=== PATIENT | male | born 1940 | race Caucasian/White ===

== ENCOUNTER 2022-02-11 06:56 | Inpatient (IN) ==
[2022-02-11] MEDS ORDERED: Furosemide 40 MG/4 ML VIAL IVP ONE (07:00)
[2022-02-11 07:33] LABS: Basophils # 0.1 K/mcL (0.0-0.2); Eosinophils # 0.5 K/mcL (0.0-0.6); Eosinophils % 6.7 %; Hemoglobin 10.6 g/dL (12.9-16.9); Immature Granulocytes % 0.4 % (0-4); Lymphocytes # 0.7 K/mcL (0.6-4.6); Lymphocytes % 9.6 %; Mean Corpuscular HGB Conc 33.1 g/dL (31.6-35.5); Mean Corpuscular Hemoglobin 33.2 pg (28.0-33.3); Mean Corpuscular Volume 100.3 fL (83.0-100.0); Mean Platelet Volume 9.6 fL (9.4-12.4); Monocytes # 0.7 K/mcL (0.0-1.3); Monocytes % 9.7 %; Neutrophils # 5.3 K/mcL (1.6-8.9); Platelet Count 117 K/mcL (140-400); Red Blood Count 3.19 M/mcL (4.19-5.50); Red Cell Distribution Width 16.6 % (11.5-14.5); Segmented Neutrophils % 72.6 %; White Blood Count 7.3 K/mcL (4.3-11.1)
[2022-02-11 07:45] LABS: INR 1.5
[2022-02-11 07:52] LABS: Albumin/Globulin Ratio 0.8 (1.1-2.2); Bilirubin,Direct 1.3 mg/dL (0.0-0.2); Bilirubin,Indirect 2.4 mg/dL (0.0-1.0); Bilirubin,Total 3.7 mg/dL (0.3-1.0); Calcium 8.7 mg/dL (8.6-10.3); Potassium 3.9 mEq/L (3.5-5.1); Troponin I 0.03 ng/mL (< 0.04)
[2022-02-11] MEDS ORDERED: Lactulose Oral Soln 20 GM/30 ML UDC PO ONE (08:02)
[2022-02-11] MEDS ORDERED: Naloxone 0.4 MG/ML INJ IVP PRN (08:42)
[2022-02-11] MEDS ORDERED: Ibuprofen 400 MG TABLET PO PRN (08:42)
[2022-02-11] MEDS ORDERED: D5% in Water 1,000 ML IVC PRN (08:42)
[2022-02-11] MEDS ORDERED: *HR* Dextrose 50 % in Water (Syg) 50 ML SYRINGE IVP PRN (08:42)
[2022-02-11] MEDS ORDERED: Dextrose Gel 15 GM/37.5 ML TUBE PO PRN ×2 (08:42)
[2022-02-11] MEDS: Furosemide 20 MG/2 ML VIAL IVP SCH ×3 (10:57→22:08)
[2022-02-11] MEDS: Lactulose Oral Soln 20 GM/30 ML UDC PO SCH ×3 (10:57→22:08)
[2022-02-11] MEDS: Insulin LISPRO 300 UNITS/3 ML VIAL SUBQ SCH ×3 (11:04→22:09)
[2022-02-11] MEDS: Fenofibrate 54 MG TABLET PO SCH (22:08)
[2022-02-11] MEDS: Melatonin 3 MG TABLET PO PRN (22:08)
[2022-02-11] MEDS: Insulin DETEMIR 100 UNIT/ML X5UNITS SUBQ SCH (22:09)
[2022-02-12 07:00] LABS: Hematocrit 28.8 % (37.5-50.1); Hemoglobin 9.5 g/dL (12.9-16.9); Mean Corpuscular Hemoglobin 33.1 pg (28.0-33.3); Mean Corpuscular Volume 100.3 fL (83.0-100.0); Mean Platelet Volume 10.2 fL (9.4-12.4); Platelet Count 124 K/mcL (140-400); Red Blood Count 2.87 M/mcL (4.19-5.50); Red Cell Distribution Width 16.7 % (11.5-14.5); White Blood Count 6.8 K/mcL (4.3-11.1)
[2022-02-12 07:15] LABS: Calcium 8.5 mg/dL (8.6-10.3); Potassium 3.7 mEq/L (3.5-5.1)
[2022-02-12] MEDS: Insulin LISPRO 300 UNITS/3 ML VIAL SUBQ SCH ×3 (08:40→20:51)
[2022-02-12] MEDS ORDERED: Ergocalciferol (VIT D2) 50,000 UNIT (1.25MG) CAP PO SCH (09:00)
[2022-02-12] MEDS: Tiotropium 10 INH DOSE IH SCH (09:52)
[2022-02-12] MEDS: Budesonide/Formoterol 160/4.5 1 PUFF INH IH SCH ×3 (09:52→21:17)
[2022-02-12] MEDS: Furosemide 20 MG/2 ML VIAL IVP SCH ×2 (09:54→21:21)
[2022-02-12] MEDS: Lactulose Oral Soln 20 GM/30 ML UDC PO SCH ×3 (09:54→21:02)
[2022-02-12] MEDS: Spironolactone 25 MG TABLET PO SCH (10:25)
[2022-02-12] MEDS: Aspirin Enteric Coated 81 MG Tablet PO SCH (10:25)
[2022-02-12] MEDS: Fenofibrate 54 MG TABLET PO SCH (21:03)
[2022-02-12] MEDS: Melatonin 3 MG TABLET PO PRN (21:05)
[2022-02-12] MEDS: Insulin DETEMIR 100 UNIT/ML X5UNITS SUBQ SCH (21:14)
[2022-02-13 07:05] VITALS: BP 97/56; PULSE 100; TEMP 98.2
[2022-02-13] MEDS: Insulin LISPRO 300 UNITS/3 ML VIAL SUBQ SCH ×2 (07:21→07:27)
[2022-02-13 07:43] LABS: Hematocrit 29.4 % (37.5-50.1); Hemoglobin 9.6 g/dL (12.9-16.9); Mean Corpuscular HGB Conc 32.7 g/dL (31.6-35.5); Mean Corpuscular Hemoglobin 32.9 pg (28.0-33.3); Mean Corpuscular Volume 100.7 fL (83.0-100.0); Mean Platelet Volume 10.7 fL (9.4-12.4); Platelet Count 116 K/mcL (140-400); Red Blood Count 2.92 M/mcL (4.19-5.50); Red Cell Distribution Width 16.8 % (11.5-14.5)
[2022-02-13] MEDS: Spironolactone 25 MG TABLET PO SCH (07:53)
[2022-02-13] MEDS: Aspirin Enteric Coated 81 MG Tablet PO SCH (07:53)
[2022-02-13] MEDS: Lactulose Oral Soln 20 GM/30 ML UDC PO SCH (07:53)
[2022-02-13 07:56] LABS: Albumin 2.5 g/dL (3.5-5.7); Albumin/Globulin Ratio 0.7 (1.1-2.2); Bilirubin,Total 4.7 mg/dL (0.3-1.0); Calcium 8.6 mg/dL (8.6-10.3); Globulin 3.4 g/dL (2.4-3.5); Potassium 4.1 mEq/L (3.5-5.1); Total Protein 5.9 g/dL (6.4-8.9)
[2022-02-13] MEDS: Budesonide/Formoterol 160/4.5 1 PUFF INH IH SCH (08:16)
[2022-02-13] MEDS: Tiotropium 10 INH DOSE IH SCH (08:18)
[2022-02-13 08:19] VITALS: RESP 18; O2SAT 94
== END 2022-02-13 10:45 | disposition short-term general hospital (02) | DRG 871 ==
LOC: EMEROOPIK 06:56 → INPPIK 06:56
PROVIDERS: ADMIT Nurse Practitioner Family; ATTEND Nurse Practitioner Family